=== PATIENT | male | born 1955 | race Caucasian/White ===

== ENCOUNTER 2016-06-21 14:44 | Emergency (ER) | payer BC ==
[2016-06-21] MEDS ORDERED: HYDROCHLOROTH12.5 M1 PO (16:13)
[2016-06-21] MEDS ORDERED: LISINOPRIL10 MG PO (16:13)
== END 2016-06-21 16:33 | disposition home or self-care (01) ==
LOC: ED 14:44
DX: I10 Essential (primary) hypertension (principal); R51 Headache; F17.220 Nicotine dependence, chewing tobacco, uncomplicated; Z85.46 Personal history of malignant neoplasm of prostate

== ENCOUNTER 2020-01-27 08:30 | Outpatient (RCR) | payer BC ==
[2016-06-21 16:22] VITALS: BP 166/88
[~2020-01-27 08:30] MED LIST: HYDROCHLOROTH12.5 M1 PO; LISINOPRIL10 MG PO
== END 2020-03-27 | disposition home or self-care (01) ==
LOC: PT
DX: M54.5 Low back pain (principal)

== ENCOUNTER 2023-12-03 08:00 | Outpatient (RCR) | payer MEDICARE | END 2023-12-22 | disposition home or self-care (01) | LOC: PT | DX: M54.16 Radiculopathy, lumbar region (principal) ==

== ENCOUNTER 2023-12-24 08:00 | Outpatient (RCR) | payer MEDICARE | END 2024-01-05 10:09 | disposition home or self-care (01) | LOC: PT 08:00 | DX: M54.16 Radiculopathy, lumbar region (principal) ==